=== PATIENT | male | born 1950 | race Caucasian/White ===

== ENCOUNTER → 2020-12-12 | Outpatient (CLI) | payer BC | LOC: M.RAD 15:05 | PROVIDERS: ATTEND Internal Medicine | DX: M85.88 Other specified disorders of bone density and structure, other site (principal); M25.531 Pain in right wrist ==

== ENCOUNTER → 2021-03-07 | Outpatient (CLI) | payer BC | LOC: M.RAD 09:50 | PROVIDERS: ATTEND Internal Medicine | DX: J44.9 Chronic obstructive pulmonary disease, unspecified (principal) ==

== ENCOUNTER → 2021-03-17 | Outpatient (CLI) | payer BC | LOC: M.RAD 09:49 | PROVIDERS: ATTEND Internal Medicine | DX: R13.10 Dysphagia, unspecified (principal); J44.9 Chronic obstructive pulmonary disease, unspecified; R05 Cough; R60.0 Localized edema ==